=== PATIENT | male | born 1995 | race African-American/Black ===

== ENCOUNTER 2019-07-27 08:43 | Emergency (ER) | payer MEDICAID, OTHER, SELFPAY ==
[2019-07-27 09:09] LABS: Bilirubin Negative (Negative); Blood, Urine Large (Negative); Glucose, Urine (Dipstick) Negative (Negative); Leukocyte Negative (Negative); Nitrite Negative (Negative); Protein, Urine (Dipstick) Trace mg/dL (Neg-Trace); Urobilinogen 0.2 mg/dL (Less than 2)
[2019-07-27] MEDS ORDERED: Ketorolac Tromethamine 30 MG/ML VIAL ONE (09:18)
[2019-07-27] MEDS ORDERED: Sodium Chloride 0.9% 1,000 ML ONE (09:18)
[2019-07-27 09:21] LABS: Bacteria/HPF 1+ HPF (None Seen); Clarity Hazy (Clear); RBC/HPF Greater than 50 HPF (0-3); Squamous Epithelial 0-3 HPF (0-3); WBC/HPF 0-3 HPF (0-3)
[2019-07-27 09:31] LABS: #Basophils 0.1 thou/uL (0.0-0.2); #Eosinphils 0.1 thou/uL (0.0-0.7); #Lymphocytes 2.4 thou/uL (1.20-3.40); #Monocytes 0.5 thou/uL (0.11-0.59); #Neutrophils 3.7 thou/uL (1.40-6.50); %Basophils 1.3 % (0.0-1.0); %Eosinophils 0.8 % (0.0-10.0); %Lymphocytes 36.1 % (21.0-51.0); %Monocytes 7.5 % (0.0-10.0); %Neutrophils 54.3 % (42.0-75.0); Hemoglobin 14.3 g/dL (14.0-18.0); Mean Corpuscular HGB CONC 32.9 g/dL (32.0-36.0); Mean Platelet Volume 6.9 fL (7.4-10.4); Platelet Count 257 thou/uL (130-400); RBC Distribution Width 11.8 % (11.5-14.5); Red Blood Cell (RBC) Count 4.76 mill/uL (4.70-6.10); White Blood Cell (WBC) Count 6.7 thou/uL (4.8-10.8)
[2019-07-27 09:41] LABS: Anion Gap 11 mmol/L (10-20); BUN (Urea Nitrogen) 16 mg/dL (8.9-20.6); Calc. Creatinine Clearance 0 mL/min (70-130); Calcium 9.1 mg/dL (7.8-10.44); Carbon Dioxide 27 mmol/L (22-29); Chloride 107 mmol/L (98-107); Estimated GFR-MDRD 88; Glucose 97 mg/dL (70-105); Potassium 4.2 mmol/L (3.5-5.1); Sodium 141 mmol/L (136-145)
--- NOTE | 2019-07-27 11:47 | CT ---
NONCONTRAST CT ABDOMEN AND PELVIS: Date: 07/27/19 HISTORY: Left flank pain. COMPARISON: None. FINDINGS: There are nonobstructing bilateral renal calculi. Single calculus on the left in mid portion of the l eft kidney measures 4.0 mm, with largest calculus mid portion right kidney also measuring 4.0 mm, wit h punctate nonobstructing calculi in the superior and inferior pole of right kidney. An approximately 3.0 mm partially obstructing calculus is seen in the region of the proximal left ureter in the regio n of the left UPJ. No right ureteral calculus is seen. There is mild left hydronephrosis present. The lung bases are clear. Lack of intravenous contrast does limit sensitivity for evaluation of the parenchymal organs. However , the liver, spleen, pancreas, and bilateral adrenal glands demonstrate grossly normal nonenhanced CT appearance. Urinary bladder is decompressed. The appendix is visualized and prominent in size, but is filled with gas, and there are no CT finding s to suggest appendicitis. Loops of small bowel are normal in caliber. Small, fat-containing umbilical hernia is present. Osseous structures have a normal appearance. IMPRESSION: 1. Partially obstructing left UPJ calculus measuring 4.0 mm. 2. Nonobstructing bilateral renal calculi. POS: OFF
== END 2019-07-27 10:13 | disposition home or self-care (01) ==
LOC: MADERS 08:43
DX: N13.2 Hydronephrosis with renal and ureteral calculous obstruction (principal); F17.210 Nicotine dependence, cigarettes, uncomplicated
CPT/HCPCS: 74176; 80048; 81001; 85025; 87086; 96361; 96374; J1885; J7050